=== PATIENT | male | born 1950 | race Caucasian/White ===

== ENCOUNTER 2019-02-11 07:23 | Emergency (ER) | payer MEDICARE ==
[~2019-02-11] VITALS: Ht 182.9 cm; Wt 80.5 kg
[2019-02-11] MEDS ORDERED: SODIUM CHLORIDE FLUSH 10ML SYR IVF ONE (08:00)
[2019-02-11 08:06] LABS: BASOPHILS # (AUTO) 0.04 x10^3/uL (0-0.1); BASOPHILS % (AUTO) 1 % (0-1); EOSINOPHILS # (AUTO) 0.15 x10^3/uL (0-0.4); EOSINOPHILS % (AUTO) 2 % (1-7); LYMPHOCYTES % (AUTO) 22 % (22-44); MD NO; MEAN CORPUSCULAR HEMOGLOBIN 30.8 pg (27.5-34.5); MEAN CORPUSCULAR HGB CONC 32.4 g/dL (33.2-36.2); MEAN CORPUSCULAR VOLUME 95.1 fL (81-97); MEAN PLATELET VOLUME 10.3 fL (7.4-10.4); MONOCYTES % (AUTO) 9 % (2-9); NEUTROPHILS # (AUTO) 4.41 x10^3/uL (1.8-6.8); NEUTROPHILS % (AUTO) 66 % (42-75); PLATELET COUNT 161 x10^3/uL (130-400); RED BLOOD COUNT 5.14 x10^6/uL (4.38-5.82); RED CELL DISTRIBUTION WIDTH 14.1 % (9.4-14.8)
[2019-02-11 08:16] LABS: PROTHROMBIN TIME 10.5 Seconds (9.6-11.5)
[2019-02-11 08:17] LABS: ALANINE AMINOTRANSFERASE 18 U/L (12-78); ALBUMIN 3.8 g/dL (3.4-5.0); ANION GAP 7 mmol/L (5-15); CALCIUM 9.1 mg/dL (8.5-10.1); CHLORIDE 104 mmol/L (98-107); CREATININE 1.62 mg/dL (0.7-1.3)
[2019-02-11 08:21] LABS: ALKALINE PHOSPHATASE 61 U/L (45-117); BILIRUBIN,TOTAL 0.7 mg/dL (0.2-1.0); TOTAL PROTEIN 7.6 g/dL (6.4-8.2); TROPONIN I < 0.015 ng/mL (0.000-0.045)
[2019-02-11] MEDS ORDERED: ASPIRIN 81 MG TABLET CHEW PO ONE (10:00)
[2019-02-11] MEDS ORDERED: hydrALAzine 20 MG/ML, 1ML ONE (10:08)
[2019-02-11] MEDS ORDERED: ASPIRIN 81 MG TABLET CHEW ONE (10:08)
[2019-02-11] MEDS ORDERED: hydrALAzine 20 MG/ML, 1ML IV ONE (10:30)
[2019-02-11 10:32] VITALS: BP 229/118
[2019-02-11] MEDS ORDERED: SODIUM CHLORIDE FLUSH 10ML SYR IVF PRN (11:00)
--- NOTE | 2019-02-11 11:14 | NUR ---
Pt updated on plan of care. Report called to TAMMIE Sy.
[2019-02-11] MEDS ORDERED: hydrALAzine 20 MG/ML, 1ML IV PRN (12:00)
[2019-02-11] MEDS ORDERED: ASPIRIN 81 MG TABLET CHEW PO/NG SCH (12:00)
[2019-02-11] MEDS ORDERED: ACETAMINOPHEN 650 MG/20.3 ML UDC PO PRN (12:00)
[2019-02-11] MEDS ORDERED: LISINOPRIL 20 MG TABLET PO SCH (12:00)
[2019-02-11] MEDS ORDERED: ONDANSETRON 2MG/ML, 2ML IVPush PRN (12:00)
[2019-02-11] MEDS ORDERED: AMLODIPINE 5 MG TABLET PO SCH (12:00)
[2019-02-11] MEDS ORDERED: ATORVASTATIN 80 MG TABLET PO SCH (21:00)
== END 2019-02-11 12:55 | disposition left against medical advice (07) ==
LOC: ED 08:55 → SUATTDRO 11:02 → UNDOADMIN 12:29 → 4WST 12:29 → ED 12:55
PROVIDERS: ATTEND Internal Medicine
DX: I63.9 Cerebral infarction, unspecified (principal); I10 Essential (primary) hypertension
CPT/HCPCS: 36415; 70450; 71045; 80053; 84484; 85025; 85610; 85730; 93005; 96374; 99284; J0360